=== PATIENT | male | born 1960 | race Two or more races ===

== ENCOUNTER 2019-02-17 13:23 | Emergency (ER) | payer SELFPAY ==
[~2019-02-17] VITALS: Ht 172.7 cm; Wt 90.0 kg
[2019-02-17] MEDS ORDERED: HYDROCODONE/ACETAMINOPHEN 5/325MG TABLET PO ONE (14:45)
[2019-02-17] MEDS ORDERED: ONDANSETRON 4MG ODT PO ONE (14:45)
[2019-02-17 16:48] VITALS: BP 124/89
== END 2019-02-17 16:52 | disposition home or self-care (01) ==
LOC: ER 13:23
DX: R51 Headache (principal); M54.2 Cervicalgia; R07.9 Chest pain, unspecified; R42 Dizziness and giddiness; R11.0 Nausea; V89.2XXA Person injured in unspecified motor-vehicle accident, traffic, initial encounter; Y93.89 Activity, other specified; Y92.89 Other specified places as the place of occurrence of the external cause; Y99.8 Other external cause status
CPT/HCPCS: 70450; 71250; 72125; 99284; Q0162